=== PATIENT | female | born 1990 ===

== ENCOUNTER 2023-02-19 17:03 | Inpatient (IN) | payer MEDICARE, MEDICAID ==
[2023-02-19] MEDS ORDERED: IBUPROFEN 600 MG TAB PO PRN (17:42)
[2023-02-19] MEDS ORDERED: MAG HYDROX/AL HYDROX/SIMETH 30 ML CUP PO PRN (17:42)
[2023-02-19] MEDS ORDERED: MAGNESIUM HYDROXIDE 2,400 MG/30 ML CUP PO PRN (17:42)
[2023-02-19] MEDS ORDERED: LORazepam 2 MG/ML INJ IM PRN (17:46)
[2023-02-19] MEDS ORDERED: HALOPERIDOL LACTATE 5 MG/ML 1 ML VIAL IM PRN (17:46)
[2023-02-19] MEDS ORDERED: haloperidoL 5 MG TAB PO PRN (17:46)
[2023-02-19] MEDS ORDERED: LORazepam 1 MG TAB PO PRN (17:46)
[2023-02-19 19:34] VITALS: RESP 16
[2023-02-19] MEDS: haloperidoL 5 MG TAB PO SCH (20:45)
[2023-02-19] MEDS: traZODone HCL 50 MG TAB PO SCH (20:45)
--- NOTE | 2023-02-20 04:25 | P.MDCNMH ---
Past Medical History History of Any Multi-Drug Resistant Organisms: None Reported Smoking Status: Current every day smoker Past Alcohol Use History: None Reported Past Drug Use History: None Reported Medications and Allergies Allergies Allergy/AdvReac Type Severity Reaction Status Date / Time acetaminophen [From Vicodin] Allergy Unknown Verified 02/19/23 17:19 hydrocodone [From Vicodin] Allergy Unknown Verified 02/19/23 17:19 olanzapine [From Zyprexa] Allergy Unknown Verified 02/19/23 17:19 Physical Exam Vitals: Vital Signs Temp Pulse Resp BP Pulse Ox 02/19/23 19:19 98.2 F 93 16 132/84 97 Intake and Output 02/19/23 02/19/23 02/20/23 14:59 22:59 06:59 Other: Weight 109.854 kg
[2023-02-20 06:29] LABS: Basophils % (A) 0 %; Eosinophils # (A) 0.4 k/uL (0-0.7); Eosinophils % (A) 5 %; HCT 46.9 % (34.0-46.0); HGB 15.7 gm/dL (11.4-16.0); Lymphocytes % (A) 24 %; MCH 27.9 pg (25.0-35.0); MCHC 33.4 g/dL (31.0-37.0); MCV 83.4 fL (80.0-100.0); Mean Platelet Volume 9.6; Monocytes # (A) 0.6 k/uL (0-1.0); Monocytes % (A) 7 %; Neutrophils # (A) 5.4 k/uL (1.3-7.7); Neutrophils % (A) 63 %; Platelet Count 278 k/uL (150-450); RBC 5.62 m/uL (3.80-5.40); RDW 14.5 % (11.5-15.5); WBC 8.5 k/uL (3.8-10.6)
[2023-02-20 06:45] LABS: ALT 23 U/L (4-34); AST 28 U/L (14-36); African American GFR (CKD) >90 (>60 ml/min/1.73 sqM); Albumin 4.2 g/dL (3.5-5.0); Alkaline Phosphatase 73 U/L (38-126); Anion Gap 4 mmol/L; Blood Urea Nitrogen 12 mg/dL (7-17); Calcium 9.3 mg/dL (8.4-10.2); Carbon Dioxide 33 mmol/L (22-30); Chloride 103 mmol/L (98-107); Glucose 115 mg/dL (74-99); Non-African American GFR(CKD) >90 (>60 ml/min/1.73 sqM); Potassium 4.2 mmol/L (3.5-5.1); Sodium 140 mmol/L (137-145); Total Bilirubin 0.8 mg/dL (0.2-1.3); Total Protein 7.8 g/dL (6.3-8.2)
[2023-02-20] MEDS: NICOTINE 14MG/24HR PATCH TRANSDERM SCH (09:31)
[2023-02-20] MEDS: haloperidoL 5 MG TAB PO SCH ×2 (09:32→20:35)
--- NOTE | 2023-02-20 13:05 | P.HP ---
Psychiatric H&P - . H&P Date: 02/20/23 History & Physical: Allergies Allergy/AdvReac Type Severity Reaction Status Date / Time acetaminophen [From Vicodin] Allergy Unknown Verified 02/19/23 17:19 hydrocodone [From Vicodin] Allergy Unknown Verified 02/19/23 17:19 olanzapine [From Zyprexa] Allergy Unknown Verified 02/19/23 17:19 Vital Signs Temp 98.2 F 02/19/23 19:19 Pulse 93 02/19/23 19:19 Resp 16 02/19/23 19:19 BP 132/84 02/19/23 19:19 Pulse Ox 97 02/19/23 19:19 FiO2 Intake & Output 02/19/23 02/20/23 02/20/23 18:59 06:59 18:59 Weight 111 kg 109.854 kg Laboratory Last Values WBC 8.5 k/uL (3.8-10.6) 02/20/23 06:11 RBC 5.62 m/uL (3.80-5.40) H 02/20/23 06:11 Hgb 15.7 gm/dL (11.4-16.0) 02/20/23 06:11 Hct 46.9 % (34.0-46.0) H 02/20/23 06:11 MCV 83.4 fL (80.0-100.0) 02/20/23 06:11 MCH 27.9 pg (25.0-35.0) 02/20/23 06:11 MCHC 33.4 g/dL (31.0-37.0) 02/20/23 06:11 RDW 14.5 % (11.5-15.5) 02/20/23 06:11 Plt Count 278 k/uL (150-450) 02/20/23 06:11 MPV 9.6 02/20/23 06:11 Neutrophils % 63 % 02/20/23 06:11 Lymphocytes % 24 % 02/20/23 06:11 Monocytes % 7 % 02/20/23 06:11 Eosinophils % 5 % 02/20/23 06:11 Basophils % 0 % 02/20/23 06:11 Neutrophils # 5.4 k/uL (1.3-7.7) 02/20/23 06:11 Lymphocytes # 2.0 k/uL (1.0-4.8) 02/20/23 06:11 Monocytes # 0.6 k/uL (0-1.0) 02/20/23 06:11 Eosinophils # 0.4 k/uL (0-0.7) 02/20/23 06:11 Basophils # 0.0 k/uL (0-0.2) 02/20/23 06:11 Sodium 140 mmol/L (137-145) 02/20/23 06:11 Potassium 4.2 mmol/L (3.5-5.1) 02/20/23 06:11 Chloride 103 mmol/L (98-107) 02/20/23 06:11 Carbon Dioxide 33 mmol/L (22-30) H 02/20/23 06:11 Anion Gap 4 mmol/L 02/20/23 06:11 BUN 12 mg/dL (7-17) 02/20/23 06:11 Creatinine 0.84 mg/dL (0.52-1.04) 02/20/23 06:11 Est GFR (CKD-EPI)AfAm >90 (>60 ml/min/1.73 sqM) 02/20/23 06:11 Est GFR (CKD-EPI)NonAf >90 (>60 ml/min/1.73 sqM) 02/20/23 06:11 Glucose 115 mg/dL (74-99) H 02/20/23 06:[address] Glu mg/dL 117 mg/dL 02/20/23 06:11 Hemoglobin A1c 5.7 % (<=6.0) 02/20/23 06:11 Calcium 9.3 mg/dL (8.4-10.2) 02/20/23 06:11 Total Bilirubin 0.8 mg/dL (0.2-1.3) 02/20/23 06:11 AST 28 U/L (14-36) 02/20/23 06:11 ALT 23 U/L (4-34) 02/20/23 06:11 Alkaline Phosphatase 73 U/L (38-126) 02/20/23 06:11 Total Protein 7.8 g/dL (6.3-8.2) 02/20/23 06:11 Albumin 4.2 g/dL (3.5-5.0) 02/20/23 06:11 TSH 4.230 mIU/L (0.465-4.680) 02/20/23 06:11 02/20/23 13:05 IDENTIFYING DATA: Patient is a single, unemployed, on disability, 32-year-old female with a significant history of schizophrenia who presented to our hospital on 02/19/2023 under petition and certification from Mellisa To for worsening psychotic symptoms. HPI: Patient presented to the hospital on 02/19/2023 under petition and certification for worsening psychotic symptoms. As per petition, the patient has been refusing her home medications, engaging in self harming behavior such as punching herself, making threats to harm others, and often yelling obscenities and inappropriate things to neighbors. She is also often noted to be engaging in self talk and yelling and responding to internal stimuli. The patient was subsequently admitted onto our psychiatric unit. Upon admission to our psychiatric unit, the patient was noted by staff to continue to engage in internal stimuli by yelling at entities that were not resident in her room. The patient was quite irritable and demanding discharge and was expressing how much she despised her mother for placing her here. Ho wever, the patient is vehemently denying any suicidal or homicidal ideation, intention, and/or plan. She does admit to hearing voices and having a "imaginary friend." However she states that she is able to control these things and that she does not require any medications. After discussion, the patient is agreeable to restarting her medications. PAST PSYCHIATRIC HISTORY: Patient states that she has previous diagnoses of schizophrenia. The patient's home medication includes Haldol decanoate 200 mg IM however the patient did not receive this medication since last November. The patient states that she was recently hospitalized at [facility] 3 months ago. She reports that she has had more than 10 inpatient psychiatric admissions. She is currently open with [facility] health with Marti Patrick and Dr Giraldo. Patient denies any history of suicide attempts in the past. PMH: History of Any Multi-Drug Resistant Organisms: None Reported Smoking Status: Current every day smoker Past Alcohol Use History: None Reported Past Drug Use History: None Reported ALLERGIES: Acetaminophen, hydrocodone, olanzapine CHEMICAL DEPENDENCY HISTORY: The patient reports smoking one pack per day of tobacco. She denies any marijuana, alcohol, or illicit drug use. FAMILY PSYCHIATRIC/SUBSTANCE USE HISTORY: No reported family psychiatric history. SOCIAL HISTORY: Patient was born and raised in [place]. She is single, never , and has no children. She completed up to the ninth grade. She receives Social Security disability income. She currently lives with her mother. She identifies as Anglican. She denies any legal history, service, or significant trauma history. MENTAL STATUS EXAM: General Appearance: Patient appears to be stated age is alert, and was initially irritable and confrontational but gradually warmed up to the provider. Patient a ppears to have fair hygiene and grooming. Obese body habitus. Short cut hair. Behavior: Patient is seated without any agitated behavior. Eye contact is appropriate. However, patient has been noted by staff to respond to internal stimuli and engage in self talk. Speech: Patient's speech is fluent and nonpressured. Mood/Affect: Patient reports their mood is "I don't need to be here," affect is congruent and irritable and obstinate Suicidality/Homicidality: Patient denies any suicidal or homicidal ideation. Perceptions: Patient denies any visual hallucinations however does appear to have auditory hallucinations Though content/process: There is no evidence of any delusional thought content and thought process is linear and goal-directed. Memory and concentration: AOX3, grossly intact for the purposes of this session. Can spell "WORLD" backwards Judgment and insight: poor STRENGTHS/WEAKNESSES: strength is that patient is in relatively good health. Weakness is that patient henry poor judgment and insight. INTELLECT: average IMPRESSIONS: Schizophrenia PLAN: -Patient is admitted under voluntary but is agreeable to voluntary status to [facility] for stabilization of psychiatric symptoms and safety. Patient signed adult voluntary form and medication consent and is placed in patient's chart. -Medications : Will start patient on Haldol 5 mg by mouth twice a day for schizophrenia with plans to transition the patient back to a long-acting injectable. -Ativan and Haldol PRN for agitation/aggression -Patient was counselled on substance abuse and desired to cut back on use -Patient was informed of the risks, benefits and side effects of the medication and patient verbally consented to taking the medications. Patient signed med consent form and was placed in chart. -Internal Medicine consult to perform medical evaluation and physical. -NRT - nicotine patch -SW on board for discharge planning. Encourage patient to participate in groups to work on coping skills. 02/20/23 13:05
[2023-02-20] MEDS: traZODone HCL 50 MG TAB PO SCH (20:35)
[2023-02-21] MEDS: haloperidoL 5 MG TAB PO SCH ×2 (07:43→20:53)
[2023-02-21] MEDS: NICOTINE 14MG/24HR PATCH TRANSDERM SCH (07:44)
[2023-02-21] MEDS ORDERED: HALOPERIDOL DECANOATE 100 MG/ML 1 ML VIAL IM STA (09:18)
[2023-02-21 10:26] LABS: Amorphous Sediment,Urine Rare /hpf; Appearance,Urine Cloudy (Clear); Bacteria,Urine Few /hpf; Bilirubin,Urine Negative (Negative); Blood,Urine Large (Negative); Color,Urine Yellow; Glucose,Urine (UA) Negative (Negative); Ketones,Urine Negative (Negative); Leukocyte Esterase,Urine Small (Negative); Mucus,Urine Rare /hpf; Nitrite,Urine Negative (Negative); PH, Urine 5.5 (5.0-8.0); Protein,Urine 1+ (Negative); RBC,Urine 6 /hpf (0-5); Specific Gravity,Urine 1.016 (1.001-1.035); Squamous Epithelial Cell,Urine 13 /hpf (0-4); Urobilinogen,Urine <2.0 mg/dL (<2.0); WBC,Urine 3 /hpf (0-5)
--- NOTE | 2023-02-21 10:26 | P.PN ---
Progress Note - Text Progress Note Date: 02/21/23 Interval History: Patient was seen wandering the hallways and was directable and agreeable to speak with promotion writer in the office. The patient is apologetic for her actions yesterday. She is agreeable to transitioning back to Haldol decanoate and has been adherent with her medications. She is not reporting any side effects at this time. She reports no suicidal or homicidal ideation, intention, and/or plan. She does acknowledge that she does experience auditory hallucinations. She denies any visual hallucinations. She reports no paranoia or other delusions. She acknowledges that she has a problem with yelling expletives. She is agreeable to trying to work on this. She denies any issues regarding her sleep or her appetite. Mental Status Exam: General Appearance: Patient appears to be stated age is alert, directable, and cooperative. Obese body habitus. Short cut hair. Behavior: Patient is calmly seated without any agitated behavior. Speech: Patient's speech is fluent and nonpressured. Mood/Affect: Mood is improving mildly, affect is congruent and euthymic. Suicidality/Homicidality: Patient denies having any suicidal or homicidal ideation, intention,/or plan. Perceptions: Patient denies any visual hallucinations however does admit to auditory hallucinations Though content/process: There is no evidence of any delusional thought content and thought process is linear and goal-directed. Memory and concentration: AOX3, grossly intact for the purposes of this session Judgment and insight: Improving mildly Vital Signs Temp 98.2 F 02/19/23 19:19 Pulse 93 02/19/23 19:19 Resp 16 02/19/23 19:19 BP 132/84 02/19/23 19:19 Pulse Ox 97 02/19/23 19:19 FiO2 Assessment Schizophrenia Nicotine dependence Plan: -Patient continues to meet criteria for inpatient psychiatric admission for symptom stabilization and safety. Patient has signed adult voluntary form and medication consent and was placed in patient's chart. -Medications: Continue Haldol 5 mg by mouth twice a day We will administer Haldol Decanoate 100 mg IM today. The patient was previously on Haldol Decanoate 150 mg every monthly with her last dose being administered in November. -When necessary Ativan and Haldol for agitation/aggression. -NRT - nicotine patch -SW on board for discharge planning. Encouraged the patient to participate in milieu.
[2023-02-21 10:59] LABS: Amphetamine Screen,Urine Not Detected (NotDetected); Barbiturate Screen,Urine Not Detected (NotDetected); Benzodiazepines Screen,Urine Not Detected (NotDetected); Cocaine Screen,Urine Not Detected (NotDetected); Methadone Screen, Urine Not Detected (NotDetected); Opiate Screen,Urine Not Detected (NotDetected); Oxycodone Screen, Urine Not Detected (NotDetected); Phencyclidine Screen,Urine Not Detected (NotDetected); Tricyclic Antidepressant,Urine Not Detected (NotDetected); Urn Cannabinoid Scrn Not Detected (NotDetected)
[2023-02-21] MEDS: traZODone HCL 50 MG TAB PO SCH (20:53)
[2023-02-22] MEDS: haloperidoL 5 MG TAB PO SCH ×2 (08:45→20:27)
--- NOTE | 2023-02-22 13:23 | P.PN ---
Progress Note - Text Progress Note Date: 02/22/23 Interval History: Patient was seen wandering the hallways and was directable and agreeable to speak with senior medical writer in the office. She states that her mood is "good ". She reports tolerating Haldol injection yesterday well. She is agreeable with continuing this. She denies any side effects or concerns with the medication. She reports eating and sleeping well. Patient was encouraged to participate in groups and engage in the open milieu. Patient was not screaming obscenities today. She reports no suicidal or homicidal ideation, intention, and/or plan. She denies auditory hallucinations. She denies any visual hallucinations. She reports no paranoia or other delusions. She denies any issues regarding her sleep or her appetite. Mental Status Exam: General Appearance: Patient appears to be stated age is alert, directable, and cooperative. Obese body habitus. Short cut hair. Behavior: Patient is calmly seated without any agitated behavior. Speech: Patient's speech is fluent and nonpressured. Mood/Affect: Mood is improving mildly, affect is flat Suicidality/Homicidality: Patient denies having any suicidal or homicidal ideation, intention,/or plan. Perceptions: Patient denies any visual hallucinations and denies auditory hallucinations Though content/process: There is no evidence of any delusional thought content and thought process is linear and goal-directed. Brief responses Memory and concentration: AOX3, grossly intact for the purposes of this session Judgment and insight: Improving mildly Vital Signs Temp 96.8 F L 02/22/23 08:53 Pulse 99 02/22/23 08:53 Resp 16 02/22/23 08:53 BP 121/76 02/22/23 08:53 Pulse Ox 97 02/22/23 08:53 FiO2 Assessment Schizophrenia Nicotine dependence Plan: -Patient continues to meet criteria for inpatient psychiatric admission for symptom stabilization and safety. Patient has signed adult voluntary form and medication consent and was placed in patient's chart. -Medications: Continue Haldol 5 mg by mouth twice a day We will administer Haldol Decanoate 100 mg IM today. The patient was previously on Haldol Decanoate 150 mg every monthly with her last dose being administered in November. -When necessary Ativan and Haldol for agitation/aggression. -NRT - nicotine patch -SW on board for discharge planning. Encouraged the patient to participate in milieu.
[2023-02-22] MEDS: traZODone HCL 50 MG TAB PO SCH (20:27)
[2023-02-23] MEDS: haloperidoL 5 MG TAB PO SCH ×2 (08:17→21:28)
--- NOTE | 2023-02-23 13:56 | P.PN ---
Progress Note - Text Progress Note Date: 02/23/23 Interval History: Patient was seen wandering the hallways and was directable and agreeable to speak with copywriter in the office. She states that her mood is "good ". She is agreeable with continuing Haldol injection future. She is agreeable with continuing this. She denies any side effects or concerns with the medication. She reports eating and sleeping well. Patient was encouraged to participate in groups and engage in the open milieu. Patient was not screaming obscenities this weekend. She asks if she will be discharged tomorrow. She reports no suicidal or homicidal ideation, intention, and/or plan. She denies auditory hallucinations. She denies any visual hallucinations. She reports no paranoia or other delusions. She denies any issues regarding her sleep or her appetite. Mental Status Exam: General Appearance: Patient appears to be stated age is alert, directable, and cooperative. Obese body habitus. Short cut hair. Behavior: Patient is calmly seated without any agitated behavior. Speech: Patient's speech is fluent and nonpressured. Mood/Affect: Mood is "good", affect is flat Suicidality/Homicidality: Patient denies having any suicidal or homicidal ideation, intention,/or plan. Perceptions: Patient denies any visual hallucinations and denies auditory hallucinations Though content/process: There is no evidence of any delusional thought content and thought process is linear and goal-directed. Brief responses Memory and concentration: AOX3, grossly intact for the purposes of this session Judgment and insight: Improving mildly Vital Signs Temp 97.4 F L 02/23/23 08:00 Pulse 113 H 02/23/23 08:00 Resp 16 02/23/23 08:00 BP 127/78 02/23/23 08:00 Pulse Ox 95 02/23/23 08:00 FiO2 Assessment Schizophrenia Nicotine dependence Plan: -Patient continues to meet criteria for inpatient psychiatric admission for symptom stabilization and safety. Patient has signed adult voluntary form and medication consent and was placed in patient's chart. -Medications: Continue Haldol 5 mg by mouth twice a day Haldol Decanoate 100 mg IM given 02/21 The patient was previously on Haldol Decanoate 150 mg every monthly with her last dose being administered in November. -When necessary Ativan and Haldol for agitation/aggression. -NRT - nicotine patch -SW on board for discharge planning. Encouraged the patient to participate in milieu.
[2023-02-23] MEDS: traZODone HCL 50 MG TAB PO SCH (21:28)
[2023-02-24 07:14] VITALS: BP 123/87; PULSE 94; TEMP 97.3
[2023-02-24] MEDS: haloperidoL 5 MG TAB PO SCH (08:33)
--- NOTE | 2023-02-24 11:43 | P.DS ---
Providers Date of admission: 02/19/23 18:16 Expected date of discharge: 02/24/23 Attending physician: Yuri Brenner MD Consults: 02/19/23 17:42 Consult Physician Routine Consulting Provider: Curtis Clements Consult Reason/Comments: h&p Do you want consulting provider notified?: Yes Primary care physician: Stated None - Discharge Diagnosis(es) (1) Schizophrenia Current Visit: Yes Status: Acute Priority: High (2) Nicotine dependence Current Visit: Yes Status: Chronic Priority: Low Hospital Course: Admission HPI: Patient is a single, unemployed, on disability, 32-year-old female with a significant history of schizophrenia who presented to our hospital on 02/19/2023 under petition and certification from Mellisa To for worsening psychotic symptoms. Patient presented to the hospital on 02/19/2023 under petition and certification for worsening psychotic symptoms. As per petition, the patient has been refusing her home medications, engaging in self harming behavior such as punching herself, making threats to harm others, and often yelling obscenities and inappropriate things to neighbors. She is also often noted to be engaging in self talk and yelling and responding to internal stimuli. The patient was subsequently admitted onto our psychiatric unit. Upon admission to our psychiatric unit, the patient was noted by staff to continue to engage in internal stimuli by yelling at entities that were not resident in her room. The patient was quite irritable and demanding discharge and was expressing how much she despised her mother for placing her here. However, the patient is vehemently denying any suicidal or homicidal ideation, intention, and/or plan. She does admit to hearing voices and having a "imaginar y friend." However she states that she is able to control these things and that she does not require any medications. After discussion, the patient is agreeable to restarting her medications. Patient states that she has previous diagnoses of schizophrenia. The patient's home medication includes Haldol decanoate 200 mg IM however the patient did not receive this medication since last November. The patient states that she was recently hospitalized at [facility] 3 months ago. She reports that she has had more than 10 inpatient psychiatric admissions. She is currently open with [facility] with Marti Patrick and Dr Giraldo. Patient denies any history of suicide attempts in the past. Hospital course: Upon admission to the unit patient was initially presenting as responding to stimuli, often noted yelling and screaming to herself, and using many expletives. Patient was however directable and agreeable to commence treatment. She signed herself voluntarily to the psychiatric unit. Patient got along well with other patients on the unit and followed unit protocol. Patient was compliant with the medications and denied any side effects throughout hospital course. Patient was started on Haldol but plans to transition her back to Haldol decanoate. Patient spoke of her stressors and engaged in therapy both group and individual. Patient was also seen by medical team for history and physical exam. Eventually, the patient was much more calm and cooperative with staff and was able to de-escalate herself when she responding to internal stimuli. She is transition back to Haldol decanoate on 02/21/2023. She was also in adherent with her oral Haldol. Over the course of the hospitalization, the patient despite significant improvement in regards her target symptoms of psychosis. She became more future oriented and develop better insight and judgment. On the day of discharge, the patient is not reporting any suicidal or homicidal ideation, intent and/or plan. She does report occasional auditory hallucination however states that she is able to ignore them. She reports no visual hallucinations. She denies any paranoia or other delusions. The patient denies any access to firearms other weapons. She does not have a significant history of substance abuse however was counseled great length and all substances including alcohol, marijuana, and also drugs. She was counseled at length importance of medication adherence appropriate outpatient follow-up. She was seen and evaluated by the medical team and reported no medical issues or concerns. She denied any chest pain, she was brought, palpitations, akathisia, tardive dyskinesia. As the patient no longer met criteria for continued inpatient psychiatric authorization, she is a screening discharge after appropriate safety planning. Mental status exam: General Appearance: Patient appears to be stated age is alert, pleasant, and cooperative. Patient is in no acute distress and has fair hygiene and grooming . Obese body habitus. Short cut hair. Behavior: Patient is calmly seated without any agitated behavior. Speech: Patient's speech is fluent and nonpressured. Mood/Affect: Patient reports their mood is "much better", affect is congruent and euthymic. Suicidality/Homicidality: Patient denies any suicidal or homicidal ideation Perceptions: Patient denies any auditory or visual hallucinations. Though content/process: There is no evidence of any delusional thought content and thought process is linear and goal-directed. Patient is future oriented Memory and concentration: AOX3, grossly intact for the purposes of this session. Can spell "WORLD" backwards correctly. Judgment and insight: Improved with guarded prognosis Impression: Schizophrenia Nicotine dependence Plan: -Continue with discharge today as patient has improved and stabilized psychiatrically and is not currently an imminent threat to herself and/or others. Patient remain at chronically elevated risk due to the severity and chronicity of her mental illness as well as her history of nonadherence with treatment. -Continue medications: Haldol Decanoate 100 mg IM was administered on 02/21/2023. Next dose of Haldol Decanoate 150 mg IM due on 03/21/2023. Continue oral Haldol 5 mg by mouth twice a day -Patient was counseled on the need for medication compliance and appropriate follow-up at mental health and also primary care for medical issues. Patient verbalized understanding and agreed. -Social work to arrange for and conduct family meeting to ensure safety upon discharge and answer any questions/concerns. Social work also to arrange for patients follow up appointments with [facility] for psychiatric care along with follow up with primary care provider. -Patient counseled on abstaining from recreational drugs and marijuana and alcohol. Was informed/educated on the adverse effects on their physical and mental health. Patient verbally agreed and understood. -Patient was instructed to return to the hospital or seek immediate medical care if their psychiatric or medical symptoms do worsen or reoccur. -Psychoeducation and supportive therapy provided to patient. Risks and benefits of pharmacological treatment versus the risks and benefits of nontreatment weighed and discussed. Informed consent discussion held. Common side effects of psychotropics discussed such as, but not limited to headache, GI disturbance, sexual dysfunction, movement disorders, sedation, and orthostatic hypotension. Life threatening and blackbox warnings of prescribed medications also discussed. Potential risks of operating a vehicle or heavy machinery discussed with patient at length. Advised on importance of compliance and a reliable and responsible manner. Patient advised to review FDA consumer labeling of all medications prior to taking. Patient verbalized understanding of potential risks, and agrees with current treatment plan. Patient advised to medically contact physician/emergency personnel if any acute changes in condition occur. Vital Signs Temp 97.3 F L 02/24/23 04:37 Pulse 94 02/24/23 04:37 Resp 16 02/24/23 04:37 BP 123/87 02/24/23 04:37 Pulse Ox 95 02/23/23 08:00 FiO2 Laboratory Results WBC 8.5 k/uL (3.8-10.6) 02/20/23 06:11 RBC 5.62 m/uL (3.80-5.40) H 02/20/23 06:11 Hgb 15.7 gm/dL (11.4-16.0) 02/20/23 06:11 Hct 46.9 % (34.0-46.0) H 02/20/23 06:11 MCV 83.4 fL (80.0-100.0) 02/20/23 06:11 MCH 27.9 pg (25.0-35.0) 02/20/23 06:11 MCHC 33.4 g/dL (31.0-37.0) 02/20/23 06:11 RDW 14.5 % (11.5-15.5) 02/20/23 06:11 Plt Count 278 k/uL (150-450) 02/20/23 06:11 MPV 9.6 02/20/23 06:11 Neutrophils % 63 % 02/20/23 06:11 Lymphocytes % 24 % 02/20/23 06:11 Monocytes % 7 % 02/20/23 06:11 Eosinophils % 5 % 02/20/23 06:11 Basophils % 0 % 02/20/23 06:11 Neutrophils # 5.4 k/uL (1.3-7.7) 02/20/23 06:11 Lymphocytes # 2.0 k/uL (1.0-4.8) 02/20/23 06:11 Monocytes # 0.6 k/uL (0-1.0) 02/20/23 06:11 Eosinophils # 0.4 k/uL (0-0.7) 02/20/23 06:11 Basophils # 0.0 k/uL (0-0.2) 02/20/23 06:11 Sodium 140 mmol/L (137-145) 02/20/23 06:11 Potassium 4.2 mmol/L (3.5-5.1) 02/20/23 06:11 Chloride 103 mmol/L (98-107) 02/20/23 06:11 Carbon Dioxide 33 mmol/L (22-30) H 02/20/23 06:11 Anion Gap 4 mmol/L 02/20/23 06:11 BUN 12 mg/dL (7-17) 02/20/23 06:11 Creatinine 0.84 mg/dL (0.52-1.04) 02/20/23 06:11 Est GFR (CKD-EPI)AfAm >90 (>60 ml/min/1.73 sqM) 02/20/23 06:11 Est GFR (CKD-EPI)NonAf >90 (>60 ml/min/1.73 sqM) 02/20/23 06:11 Glucose 115 mg/dL (74-99) H 02/20/23 06:[address] Glu mg/dL 117 mg/dL 02/20/23 06:11 Hemoglobin A1c 5.7 % (<=6.0) 02/20/23 06:11 Calcium 9.3 mg/dL (8.4-10.2) 02/20/23 06:11 Total Bilirubin 0.8 mg/dL (0.2-1.3) 02/20/23 06:11 AST 28 U/L (14-36) 02/20/23 06:11 ALT 23 U/L (4-34) 02/20/23 06:11 Alkaline Phosphatase 73 U/L (38-126) 02/20/23 06:11 Total Protein 7.8 g/dL (6.3-8.2) 02/20/23 06:11 Albumin 4.2 g/dL (3.5-5.0) 02/20/23 06:11 TSH 4.230 mIU/L (0.465-4.680) 02/20/23 06:11 Urine Color Yellow 02/21/23 09:49 Urine Appearance Cloudy (Clear) H 02/21/23 09:49 Urine pH 5.5 (5.0-8.0) 02/21/23 09:49 Ur Specific [place] 1.016 (1.001-1.035) 02/21/23 09:49 Urine Protein 1+ (Negative) H 02/21/23 09:49 Urine Glucose (UA) Negative (Negative) 02/21/23 09:49 Urine Ketones Negative (Negative) 02/21/23 09:49 Urine Blood Large (Negative) H 02/21/23 09:49 Urine Nitrite Negative (Negative) 02/21/23 09:49 Urine Bilirubin Negative (Negative) 02/21/23 09:49 Urine Urobilinogen <2.0 mg/dL (<2.0) 02/21/23 09:49 Ur Leukocyte Esterase Small (Negative) H 02/21/23 09:49 Urine RBC 6 /hpf (0-5) H 02/21/23 09:49 Urine WBC 3 /hpf (0-5) 02/21/23 09:49 Ur Squamous Epith Cells 13 /hpf (0-4) H 02/21/23 09:49 Amorphous Sediment Rare /hpf (None) H 02/21/23 09:49 Urine Bacteria Few /hpf (None) H 02/21/23 09:49 Urine Mucus Rare /hpf (None) H 02/21/23 09:49 Urine HCG, Qual Not Detected (Not Detectd) 02/21/23 09:49 Urine Opiates Screen Not Detected (NotDetected) 02/21/23 09:49 Ur Oxycodone Screen Not Detected (NotDetected) 02/21/23 09:49 Urine Methadone Screen Not Detected (NotDetected) 02/21/23 09:49 Ur Propoxyphene Screen Not Detected (NotDetected) 02/21/23 09:49 Ur Barbiturates Screen Not Detected (NotDetected) 02/21/23 09:49 U Tricyclic Antidepress Not Detected (NotDetected) 02/21/23 09:49 Ur Phencyclidine Scrn Not Detected (NotDetected) 02/21/23 09:49 Ur Amphetamines Screen Not Detected (NotDetected) 02/21/23 09:49 U Methamphetamines Scrn Not Detected (NotDetected) 02/21/23 09:49 U Benzodiazepines Scrn Not Detected (NotDetected) 02/21/23 09:49 Urine Cocaine Screen Not Detected (NotDetected) 02/21/23 09:49 U Marijuana (THC) Screen Not Detected (NotDetected) 02/21/23 09:49 Allergies Allergy/AdvReac Type Severity Reaction Status Date / Time acetaminophen [From Vicodin] Allergy Unknown Verified 02/19/23 17:19 hydrocodone [From Vicodin] Allergy Unknown Verified 02/19/23 17:19 olanzapine [From Zyprexa] Allergy Unknown Verified 02/19/23 17:19 Patient Condition at Discharge: Stable Plan - Discharge Summary Discharge Rx Participant: No New Discharge Prescriptions: New Haloperidol Decanoate [Haldol D] 150 mg IM QMONTHLY #1 each traZODone HCL [Desyrel] 100 mg PO HS 30 Days #60 tab haloperidoL [Haldol] 5 mg PO BID 30 Days #60 tab Continue Metoprolol Succinate [Metoprolol Succinate ER] 50 PO DAILY Discharge Medication List Metoprolol Succinate [Metoprolol Succinate ER] 50 PO DAILY 02/22/23 [History] Haloperidol Decanoate [Haldol D] 150 mg IM QMONTHLY #1 each 02/24/23 [Rx] haloperidoL [Haldol] 5 mg PO BID 30 Days #60 tab 02/24/23 [Rx] traZODone HCL [Desyrel] 100 mg PO HS 30 Days #60 tab 02/24/23 [Rx] Follow up Appointment(s)/Referral(s): Chyna Muhammad [Other] - 1 Week Patient Instructions/Handouts: Depression (DC) Activity/Diet/Wound Care/Special Instructions: Avoid the use of street drugs and alcohol. Take all medications as prescribed. When you are in need of refills on your medications, please contact your medical provider and/or outpatient psychiatrist to have this done. Please go to scheduled outpatient appointments for aftercare treatment. If symptoms return or become worse, call the crisis line at and/or go to the nearest emergency room for evaluation. Discharge Disposition: HOME SELF-CARE
== END 2023-02-24 15:48 | disposition home or self-care (01) | DRG 885 ==
LOC: 3MHU 18:16
PROVIDERS: ADMIT Psychiatry & Neurology Psychiatry; ATTEND Psychiatry & Neurology Psychiatry
DX: F20.0 Paranoid schizophrenia (principal); Z68.41 Body mass index [BMI] 40.0-44.9, adult; F20.9 Schizophrenia, unspecified; Z56.0 Unemployment, unspecified; F17.210 Nicotine dependence, cigarettes, uncomplicated; E66.9 Obesity, unspecified; R45.1 Restlessness and agitation; Z71.51 Drug abuse counseling and surveillance of drug abuser; Z79.899 Other long term (current) drug therapy; Z88.5 Allergy status to narcotic agent; Z88.0 Allergy status to penicillin
CPT/HCPCS: 80053; 80306; 81001; 81025; 83036; 84443; 85025